=== PATIENT | female | born 1975 | race African-American/Black ===

== ENCOUNTER 2019-08-07 20:03 | Emergency (ER) | payer BC, SELFPAY ==
[2019-08-07] MEDS ORDERED: Ondansetron ODT 4 MG TAB ONE (20:35)
[2019-08-07 20:48] LABS: #Eosinphils 0.1 thou/uL (0.0-0.7); #Lymphocytes 1.6 thou/uL (1.20-3.40); #Monocytes 0.4 thou/uL (0.11-0.59); #Neutrophils 5.7 thou/uL (1.40-6.50); %Basophils 0.4 % (0.0-1.0); %Eosinophils 0.7 % (0.0-10.0); %Lymphocytes 20.6 % (21.0-51.0); %Monocytes 5.2 % (0.0-10.0); %Neutrophils 73.1 % (42.0-75.0); Hemoglobin 12.5 g/dL (12.0-16.0); Mean Corpuscular HGB CONC 34.4 g/dL (32.0-36.0); Mean Corpuscular Hemoglobin 31.8 pg (27.0-31.0); Mean Corpuscular Volume 92.4 fL (78.0-98.0); Mean Platelet Volume 9.5 fL (7.4-10.4); Platelet Count 228 thou/uL (130-400); RBC Distribution Width 11.8 % (11.5-14.5); Red Blood Cell (RBC) Count 3.93 mill/uL (4.20-5.40); White Blood Cell (WBC) Count 7.8 thou/uL (4.8-10.8)
[2019-08-07 20:53] LABS: BHCG - Serum Negative (NEGATIVE); Pregs Control Background? CLEAR/WHITE (CLR/WHITE); Pregs Control Bar Appear? YES (CONTROL BAR)
--- NOTE | 2019-08-07 21:05 | CT ---
CT BRAIN WITHOUT CONTRAST: 08/07/19 HISTORY: Syncope. COMPARISON: CT brain 10/31/13. FINDINGS: There is no acute hemorrhage or infarct. 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 No midlin e shift. No mass effect. The calvarium is intact. The paranasal sinuses and mastoids are clear. IMPRESSION: No acute intracranial abnormality. POS: HOME
[2019-08-07 21:09] LABS: ALT (SGPT) 32 U/L (8-55); AST (SGOT) 27 U/L (5-34); Albumin 4.1 g/dL (3.5-5.0); Alkaline Phosphatase 61 U/L (40-110); Anion Gap 13 mmol/L (10-20); BUN (Urea Nitrogen) 13 mg/dL (7.0-18.7); Bilirubin, Total 0.5 mg/dL (0.2-1.2); Calc. Creatinine Clearance 0 mL/min (70-130); Calcium 9.4 mg/dL (7.8-10.44); Carbon Dioxide 27 mmol/L (22-29); Chloride 103 mmol/L (98-107); Estimated GFR-MDRD 60; Globulin 3.3 g/dL (2.4-3.5); Glucose 101 mg/dL (70-105); Protein, Total 7.4 g/dL (6.0-8.3); Sodium 140 mmol/L (136-145)
[2019-08-07 21:12] LABS: Potassium 2.8 mmol/L (3.5-5.1)
[2019-08-07] MEDS ORDERED: Potassium Chloride 20 MEQ TAB ONE (21:18)
--- NOTE | 2019-08-15 15:54 | EKG ---
Test Reason : Blood Pressure : / mmHG Vent. Rate : 069 BPM Atrial Rate : 069 BPM P-R Int : 194 ms QRS Dur : 076 ms QT Int : 420 ms P-R-T Axes : 050 005 013 degrees QTc Int : 450 ms Normal sinus rhythm with sinus arrhythmia Normal ECG Confirmed by JOSE ENRIQUE THRASHER, CACHORRO Fritz ([id number]), editorial writer RASHEED CASSIDY ([id number]) on 08/15/2019 3:53:45 PM Referred By: Confirmed By:CACHORRO QUISPE MD
== END 2019-08-07 21:46 | disposition home or self-care (01) ==
LOC: ERS 20:03
DX: R55 Syncope and collapse (principal); E87.6 Hypokalemia; I10 Essential (primary) hypertension; G35 Multiple sclerosis; Z79.899 Other long term (current) drug therapy; W22.8XXA Striking against or struck by other objects, initial encounter
CPT/HCPCS: 36415; 70450; 80053; 84703; 85025; 93005; Q0162